=== PATIENT | male | born 1935 ===

== ENCOUNTER 2021-05-04 23:02 | Inpatient (IN) | payer MEDICARE, OTHER ==
[~2021-05-04] VITALS: Ht 152.4 cm; Wt 62.1 kg
--- NOTE | 2021-05-04 23:25 | NUR ---
Dr. Lopes at bedside for MSE.
[2021-05-04] MEDS ORDERED: ENALAPRILAT DIHYDRATE 1.25 MG/1 ML VIAL IV ONE ×2 (23:30→23:45)
[2021-05-04] MEDS ORDERED: NITROGLYCERIN OINT 1 GM PACKET TP ONE ×2 (23:30→23:46)
[2021-05-04] MEDS ORDERED: FUROSEMIDE 20 MG/2 ML VIAL IVP ONE (23:30)
[2021-05-04] MEDS ORDERED: FUROSEMIDE 40 MG/4 ML VIAL ONE (23:45)
--- NOTE | 2021-05-04 23:45 | NUR ---
Xray at bedside.
[2021-05-05 00:02] LABS: HEMATOCRIT 40.4 % (36.7-47.1); MEAN CORPUSCULAR HEMOGLOBIN 31.3 uug (23.8-33.4); MEAN CORPUSCULAR VOLUME 90.6 fL (73.0-96.2); PLATELET COUNT (AUTO) 179 K/uL (152-348)
[2021-05-05 00:28] LABS: CREATININE 1.2 mg/dL (0.6-1.3); POTASSIUM 4.7 mmol/L (3.5-5.1)
--- NOTE | 2021-05-05 00:35 | NUR ---
Dr. Lopes on panel call with Meliton Jesus DNP
[2021-05-05 00:41] LABS: BILIRUBIN,DIRECT 0.2 mg/dL (0.0-0.2); BILIRUBIN,TOTAL 0.7 mg/dL (0.2-1.0); TOTAL PROTEIN, SERUM 7.3 g/dL (6.4-8.2)
[2021-05-05] MEDS ORDERED: IRBE150T28 PO (02:13)
[2021-05-05] MEDS ORDERED: FURO20TA4 PO (02:13)
[2021-05-05] MEDS ORDERED: APIX5TAB4 PO (02:13)
[2021-05-05] MEDS ORDERED: OMEP40CA21 PO (02:13)
[2021-05-05] MEDS ORDERED: LEVO50TA8 PO (02:13)
[2021-05-05] MEDS ORDERED: ALLO300T2 PO (02:13)
[2021-05-05] MEDS ORDERED: ISOS30TA86 PO (02:13)
[2021-05-05] MEDS ORDERED: CLOP75TA33 PO (02:13)
[2021-05-05] MEDS ORDERED: CARV6.252 PO (02:13)
[2021-05-05] MEDS ORDERED: ROSU20TA32 PO (02:13)
[2021-05-05] MEDS ORDERED: POTA10TA10 PO (02:13)
[2021-05-05] MEDS ORDERED: TAMS-3 PO (02:13)
--- NOTE | 2021-05-05 04:15 | NUR ---
Report given to Ayana GRACE Tele.
--- NOTE | 2021-05-05 04:55 | NUR ---
ADMITTED THIS 86 Y.O.MALE WITH COMPLAINTS OF SHORTNESS OF BREATH,W/O CHEST PAIN,ON TELE ,AFIB 70,NO DISTRESS NOTED.SON WILL COME BACK TO GIVE APPROPRIATE INFO RE;PT.[place], SPEAKING ONLY.TRANSFERRED TO BED ,UNSTEADY GAIT NOTED.VS STABLE, PT JUST WANTED TO SLEEP, ABLE TO USE URINAL.STRICT I/O MEASURED.
[2021-05-05 05:29] VITALS: BP 142/65
[2021-05-05] MEDS ORDERED: Z GUARD REMEDY PASTE 57 GM TUBE TOP PRN (05:45)
[2021-05-05] MEDS ORDERED: ONDANSETRON 4 MG/2 ML VIAL IV PRN (05:45)
[2021-05-05] MEDS ORDERED: ACETAMINOPHEN 325 MG TABLET PO PRN (05:45)
[2021-05-05] MEDS ORDERED: ZOLPIDEM 5 MG TABLET PO PRN (05:45)
[2021-05-05] MEDS ORDERED: MAGNESIUM HYDROXIDE 30 ML LIQUID UDC PO PRN (05:45)
--- NOTE | 2021-05-05 07:40 | NUR ---
ENDORSED TO AM NURSE IN FAIR CONDITION.
--- NOTE | 2021-05-05 07:45 | NUR ---
Received resting but arousable to stimuli. On 3 lpm nc spo2 98%. Breathing non labored. No s/sx of pain or discomfort. Safety measures in place. Kept comfortable.
[2021-05-05] MEDS ORDERED: FUROSEMIDE 20 MG/2 ML VIAL IV SCH (09:00)
[2021-05-05] MEDS ORDERED: MELO-107 PO (09:39)
--- NOTE | 2021-05-05 09:45 | NUR ---
Received meds from [facility]. Endorsed to pharmacy
[2021-05-05 12:00] VITALS: BP 137/65
--- NOTE | 2021-05-05 12:04 | NUR ---
per son's info, pt had procedure done on his legs at master esthetician[facility] office last thursday. both lower legs noted wrapped in carlton wrap. per son instructed by md to remove wraps today. back of both lower legs with band aids and steri strips dressing on incisions. no bleeding noted. picture put in chart. son will provide md name/office tomorrow.
[2021-05-05] MEDS ORDERED: MELOXICAM 7.5 MG TABLET PO SCH (15:30)
[2021-05-05] MEDS ORDERED: TAMSULOSIN HCL 0.4 MG CAP.SR.24H PO SCH (15:30)
[2021-05-05 16:28] VITALS: BP 155/89
--- NOTE | 2021-05-05 16:30 | NUR ---
pt pulled out her iv line. pt is hard stick unable to insert iv at this time. will try again later. Addendum: 05/05/21 at 1807 by ANIKA CASTREJON RN wrong patient.
[2021-05-05] MEDS: CARVEDILOL 6.25 MG TABLET PO SCH (17:29)
[2021-05-05] MEDS: LEVOTHYROXINE SODIUM 50 MCG TABLET PO SCH (17:30)
[2021-05-05] MEDS: CHOLECALCIFEROL 1,000 UNIT TABLET PO SCH (17:30)
[2021-05-05] MEDS: ALLOPURINOL 300 MG TABLET PO SCH (17:30)
[2021-05-05] MEDS: POTASSIUM CHLORIDE 10 MEQ TAB.PRT.SR PO SCH (17:30)
[2021-05-05] MEDS: CLOPIDOGREL 75 MG TABLET PO SCH (17:30)
[2021-05-05] MEDS: APIXABAN 5 MG TABLET PO SCH ×2 (17:31→20:05)
[2021-05-05] MEDS: FUROSEMIDE 40 MG/4 ML VIAL IV SCH ×2 (17:31→20:05)
[2021-05-05] MEDS: ISOSORBIDE MONONITRATE 30 MG TAB.SR.24H PO SCH (17:34)
--- NOTE | 2021-05-05 18:59 | NUR ---
alert and responsive. no acute distress. in pleasant mood. son at bedside. no complaints. lfa 22g iv intact. safety measures in place. kept comfortable. call light in reach.
--- NOTE | 2021-05-05 19:45 | NUR ---
RECEIVED PATIENT AWAKE IN BED WITH SON AT BEDSIDE. PATIENT IS A/O X4. NAURUAN SPEAKING. VERY PLEASANT WHEN APPROACHED. DENIES PAIN OR DISCOMFORT. NO RESP. DISTRESS NOTED. ON O2 2L NC SATING WELL. DENIES ANY SOB. H/L INTACT AND PATENT, NOTED TO LEFT FA #22 GAUGE. CALL LIGHT IN REACH. ALL NEEDS ATTENDED. WILL CONTINUE TO MONITOR AND ASSESS.
[2021-05-05] MEDS: ATORVASTATIN 40 MG TABLET PO SCH (20:04)
[2021-05-05 20:06] VITALS: BP 128/75
--- NOTE | 2021-05-05 20:15 | NUR ---
PATIENT TAKEN ELIQUIS AND LASIX AT 1731 PER DAYSHIFT SANJAY.
[2021-05-05] MEDS ORDERED: Medication Not On Formulary EA (Irbesartan (Avapro) 1 TAB) PO SCH (21:00)
[2021-05-06 04:03] VITALS: BP 106/63
[2021-05-06] MEDS: LEVOTHYROXINE SODIUM 50 MCG TABLET PO SCH (06:13)
[2021-05-06] MEDS: PANTOPRAZOLE SODIUM 40 MG TABLET.DR PO SCH (06:13)
[2021-05-06 06:22] LABS: HEMATOCRIT 40.1 % (36.7-47.1); MEAN CORPUSCULAR HEMOGLOBIN 31.6 uug (23.8-33.4); PLATELET COUNT (AUTO) 142 K/uL (152-348)
[2021-05-06 06:56] LABS: BILIRUBIN,TOTAL 0.8 mg/dL (0.2-1.0); CREATININE 1.1 mg/dL (0.6-1.3); MAGNESIUM 2.1 mg/dL (1.8-2.4); PHOSPHOROUS 4.5 mg/dL (2.5-4.9); POTASSIUM 4.4 mmol/L (3.5-5.1); TOTAL PROTEIN, SERUM 6.7 g/dL (6.4-8.2)
[2021-05-06] MEDS: APIXABAN 5 MG TABLET PO SCH ×2 (08:21→20:33)
[2021-05-06] MEDS: CLOPIDOGREL 75 MG TABLET PO SCH (08:25)
[2021-05-06] MEDS: ALLOPURINOL 300 MG TABLET PO SCH (08:25)
[2021-05-06] MEDS: CHOLECALCIFEROL 1,000 UNIT TABLET PO SCH (08:25)
[2021-05-06] MEDS: FUROSEMIDE 40 MG/4 ML VIAL IV SCH ×2 (08:25→20:24)
[2021-05-06] MEDS: POTASSIUM CHLORIDE 10 MEQ TAB.PRT.SR PO SCH (08:25)
[2021-05-06] MEDS: ISOSORBIDE MONONITRATE 30 MG TAB.SR.24H PO SCH (08:26)
[2021-05-06] MEDS: LOSARTAN POTASSIUM 50 MG TABLET PO SCH (08:27)
[2021-05-06] MEDS: CARVEDILOL 6.25 MG TABLET PO SCH ×2 (08:27→16:52)
--- NOTE | 2021-05-06 11:35 | NUR ---
PATIENT SEEN AND EXAMINED BY AYSE LOFTON WITH NEW ORDERS AND NOTED
[2021-05-06 12:00] VITALS: BP 108/54
[2021-05-06 16:36] VITALS: BP 130/72
--- NOTE | 2021-05-06 17:29 | NUR ---
PATIENT IS RESTING SON AT THE BEDSIDE URINE OUT PUT HAS BEEN ADEQUATE AZUL LEGS WITH LESS EDEMA DENIES DISCOMFORTS WILL CONTINUE TO OBSERVE.
[2021-05-06] MEDS: ATORVASTATIN 40 MG TABLET PO SCH (20:32)
[2021-05-06] MEDS: TAMSULOSIN HCL 0.4 MG CAP.SR.24H PO SCH (20:33)
[2021-05-06 20:44] VITALS: BP 145/67
[2021-05-07 00:16] VITALS: BP 149/67
[2021-05-07 04:32] VITALS: BP 143/74
[2021-05-07 06:05] LABS: HEMATOCRIT 39.8 % (36.7-47.1); MEAN CORPUSCULAR HEMOGLOBIN 31.8 uug (23.8-33.4); MEAN CORPUSCULAR VOLUME 90.8 fL (73.0-96.2); PLATELET COUNT (AUTO) 148 K/uL (152-348)
[2021-05-07] MEDS: LEVOTHYROXINE SODIUM 50 MCG TABLET PO SCH (06:15)
[2021-05-07] MEDS: PANTOPRAZOLE SODIUM 40 MG TABLET.DR PO SCH (06:15)
--- NOTE | 2021-05-07 06:28 | NUR ---
Patient slept well throughout the night, on tele -.
[2021-05-07 06:52] LABS: CREATININE 1.1 mg/dL (0.6-1.3); MAGNESIUM 2.2 mg/dL (1.8-2.4); POTASSIUM 4.5 mmol/L (3.5-5.1)
--- NOTE | 2021-05-07 08:00 | NUR ---
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
[2021-05-07] MEDS: CHOLECALCIFEROL 1,000 UNIT TABLET PO SCH (08:19)
[2021-05-07] MEDS: CLOPIDOGREL 75 MG TABLET PO SCH (08:19)
[2021-05-07] MEDS: POTASSIUM CHLORIDE 10 MEQ TAB.PRT.SR PO SCH (08:19)
[2021-05-07] MEDS: ALLOPURINOL 300 MG TABLET PO SCH (08:19)
[2021-05-07] MEDS: APIXABAN 5 MG TABLET PO SCH ×2 (08:20→20:11)
[2021-05-07] MEDS: ISOSORBIDE MONONITRATE 30 MG TAB.SR.24H PO SCH (08:20)
[2021-05-07] MEDS: CARVEDILOL 6.25 MG TABLET PO SCH ×2 (08:21→16:53)
[2021-05-07] MEDS: LOSARTAN POTASSIUM 50 MG TABLET PO SCH (08:21)
--- NOTE | 2021-05-07 08:30 | NUR ---
PATIENT IS AWAKE ALERT AND ORIENTED REMAIN ON ROOM AIR AT 95 PERCENT AND IS ABLE TO MAKE NEEDS KNOWN ASSISTED NEEDED HE IS CONTINENT USING THE URINAL AND VOIDING WELL CALL LIGHTS AND PERSONAL BELONGINGS ARE WITHIN EASY REACH DUE MEDICATIONS GIVE AND IS COMPLIANT WITH HIS MEDICATIONS MADE COMFORTABLE AND WILL CONTINUE TO OBSERVE
--- NOTE | 2021-05-07 09:39 | NUR ---
PATIENT SEEN BY THE PHYSICAL THERAPIST FOR AMBULATION WITH THE FRONT WHEEL WALKER HE WAS ON O2 AT 3L/M BY NASAL CANULLA AND AFTER HE WALKED ABOUT 100 FEET HIS SAT DROPPED DOWN TO 87 PERCENT ON ROOM AIR BUT AFTER RESTING FOR A FEW MINUTES HIS SAT IS NOW 91 PERCENT O2 CONNECTED BACK AT 1L/M WITH RECHECK AND WILL DETERMINE IF PATIENT WILL NEED HOME O2 FOR DISCHARGE PATIENTS SON NOTIFIED.
[2021-05-07 11:50] VITALS: BP 123/61
--- NOTE | 2021-05-07 12:32 | NUR ---
PATIENT DID NOT RECEIVE LASIX TODAY APPARENTLY HIS IV LASIX WAS DISCONTINUED YESTERDAY SPOKE WITH [facility] PROVIDER AND HE STATED TO GIVE HIM 40 MG TODAY AND SHE WILL PLACE ORDERS FOR HOME USE.
--- NOTE | 2021-05-07 12:44 | NUR ---
LASIX 40 MG GIVEN ORALLY AT THIS TIME ORDERED
[2021-05-07] MEDS ORDERED: FUROSEMIDE 40 MG TABLET PO ONE (12:45)
--- NOTE | 2021-05-07 13:00 | NUR ---
O2 CHECKED AND ITS 95 PERCENT ON 1L O2 STOPPED AT THIS TIME AND WILL RECHECK IN ABOUT ONE TO TWO HOURS.
[2021-05-07 15:45] VITALS: BP 149/76
--- NOTE | 2021-05-07 17:00 | NUR ---
O2 ON ROOM AIR AT REST IS 96-97 PERCENT AMBULATED IN THE HALLWAY MANY LAPS O2 RECHECKED AND ITS 94-95 PERCENT PATIENT IS ON ROOM AIR AT THIS TIME WITH NO SHORTNESS OF BREATH.
[2021-05-07 20:00] VITALS: BP 131/68
[2021-05-07] MEDS: ATORVASTATIN 40 MG TABLET PO SCH (20:11)
[2021-05-07] MEDS: TAMSULOSIN HCL 0.4 MG CAP.SR.24H PO SCH (20:11)
[2021-05-08] VITALS: BP 120/68
--- NOTE | 2021-05-08 03:03 | NUR ---
SLEEPING AT LONG INTERVALS ON ROOM AIR WITH NO SHORTNESS OF BREATH AT THIS TIME CALL LIGHTS WITHIN EASY REACH WILL CONTINUE TO OBSERVE.
[2021-05-08 04:00] VITALS: BP 103/51
[2021-05-08] MEDS: PANTOPRAZOLE SODIUM 40 MG TABLET.DR PO SCH (06:53)
[2021-05-08] MEDS: LEVOTHYROXINE SODIUM 50 MCG TABLET PO SCH (06:53)
[2021-05-08 09:00] VITALS: BP 122/76
[2021-05-08] MEDS ORDERED: FUROSEMIDE 20 MG TABLET PO ONE (09:00)
--- NOTE | 2021-05-08 09:00 | NUR ---
awake alert, very pleasant, pt speaks Estonian, son at bedside- speaks fluent Upper Sorbian, pt denies of pain, no shortness of breath, on room air sat at 95%, Dr Stallworth spoke to son and pt, explained plan of care- verbalized understanding, safety measures maintained
[2021-05-08] MEDS: APIXABAN 5 MG TABLET PO SCH (09:29)
[2021-05-08] MEDS: LOSARTAN POTASSIUM 50 MG TABLET PO SCH (09:30)
[2021-05-08] MEDS: CLOPIDOGREL 75 MG TABLET PO SCH (09:31)
[2021-05-08] MEDS: ISOSORBIDE MONONITRATE 30 MG TAB.SR.24H PO SCH (09:31)
[2021-05-08] MEDS: POTASSIUM CHLORIDE 10 MEQ TAB.PRT.SR PO SCH (09:31)
[2021-05-08] MEDS: ALLOPURINOL 300 MG TABLET PO SCH (09:32)
[2021-05-08] MEDS: CHOLECALCIFEROL 1,000 UNIT TABLET PO SCH (09:32)
[2021-05-08] MEDS: CARVEDILOL 6.25 MG TABLET PO SCH ×2 (09:32→17:00)
[2021-05-08 09:52] LABS: CREATININE 1.1 mg/dL (0.6-1.3); POTASSIUM 4.4 mmol/L (3.5-5.1)
--- NOTE | 2021-05-08 11:30 | NUR ---
ambulated in hallway- been on room air, tolerated well, sat at 95%, denies of pain
[2021-05-08 11:59] VITALS: BP 110/68
--- NOTE | 2021-05-08 14:30 | NUR ---
seen by Alonso Montoya MACHINE ASSEMBLER- pt to go home- son at bedside
[2021-05-08] MEDS ORDERED: FURO-152 PO (14:32)
[2021-05-08] MEDS ORDERED: FURO-151 PO (14:32)
[2021-05-08 16:15] VITALS: BP 110/68
[2021-05-08 17:00] VITALS: BP 121/56
--- NOTE | 2021-05-08 17:15 | NUR ---
discharged instructions given to son Lucas- verbalized understanding, pt want to have dinner prior to d/c, all belongings placed in bag, home med kept in pharmacy returned and given to son.
--- NOTE | 2021-05-08 18:50 | NUR ---
saline lock removed, no redness/swelling on site, tele removed, all belongings with him, escorted to car per w/c in stable condition under son's care
== END 2021-05-08 18:50 | disposition home or self-care (01) | DRG 291 ==
LOC: ER 23:05 → TELE3 05-05 04:24
PROVIDERS: ADMIT Nurse Practitioner Acute Care; ATTEND Nurse Practitioner Acute Care
DX: I11.0 Hypertensive heart disease with heart failure (principal); J96.00 Acute respiratory failure, unspecified whether with hypoxia or hypercapnia; I48.20 Chronic atrial fibrillation, unspecified; E87.1 Hypo-osmolality and hyponatremia; I50.23 Acute on chronic systolic (congestive) heart failure; E78.00 Pure hypercholesterolemia, unspecified; E03.9 Hypothyroidism, unspecified; I25.5 Ischemic cardiomyopathy; I25.10 Atherosclerotic heart disease of native coronary artery without angina pectoris; I87.2 Venous insufficiency (chronic) (peripheral); I73.9 Peripheral vascular disease, unspecified; N40.0 Benign prostatic hyperplasia without lower urinary tract symptoms; Z79.01 Long term (current) use of anticoagulants; Z79.02 Long term (current) use of antithrombotics/antiplatelets; Z79.899 Other long term (current) drug therapy; Z95.1 Presence of aortocoronary bypass graft; Z95.5 Presence of coronary angioplasty implant and graft
CPT/HCPCS: 36415; 70030-TC; 71045; 83735; 84100; 85025; 93005; 93307; 97161; G0378; J1940; J3490